=== PATIENT | male | born 1980 | race Two or more races ===

== ENCOUNTER 2020-05-04 17:35 | Emergency (ER) | payer SELFPAY ==
[~2020-05-04] VITALS: Ht 165.1 cm; Wt 81.6 kg
[2020-05-04 17:50] VITALS: BP 138/83; Ht 165.1 cm; Wt 81.6 kg
== END 2020-05-04 20:05 | disposition left against medical advice (07) ==
LOC: ED 17:35
DX: Z53.21 Procedure and treatment not carried out due to patient leaving prior to being seen by health care provider (principal)
CPT/HCPCS: U0003-CS